=== PATIENT | female | born 1955 | race Caucasian/White ===

== ENCOUNTER 2018-05-14 18:37 | Emergency (ER) | payer OTHER ==
[~2018-05-14] VITALS: Ht 160 cm; Wt 76.2 kg
[~2018-05-14 18:37] MED LIST: ASPIR 8181 MG PO; NORCO 5-325 TA1 EACH PO; PERCOCET 5-3251 EACH PO; PRINIVIL20 M1 PO
[2018-05-14 18:42] VITALS: BP 146/83
== END 2018-05-15 05:36 | disposition home or self-care (01) ==
LOC: ER 18:37
DX: H61.21 Impacted cerumen, right ear (principal)

== ENCOUNTER 2020-09-17 09:53 | Emergency (ER) | payer OTHER ==
[~2020-09-17] VITALS: Ht 167.6 cm; Wt 72.6 kg
[2020-09-17] MEDS ORDERED: MONTELUKAST SODI4 M1 PO (10:13)
[2020-09-17 10:35] LABS: ABSOLUTE NEUTROPHILS 2.9 thou/uL (1.4-8.2); BASOPHILS 0.7 % (0.0-2.0); EOSINOPHILS 1.8 % (0.0-3.0); HEMATOCRIT 41.3 % (37.0-47.0); HEMOGLOBIN 14.2 gm/dL (12.0-15.0); LYMPHOCYTES 22.1 % (24.0-44.0); MCH 30.8 pg (26.0-34.0); MCHC 34.4 g/dL (28.0-37.0); MCV 89.4 fL (80.0-100.0); PLATELET COUNT 218 thou/uL (150-400); POLYS 63.4 % (36.0-66.0); RBC 4.61 mil/uL (4.20-5.00); RDW 13.3 % (10.5-14.5); WBC 4.6 thou/uL (4.0-11.0)
[2020-09-17 10:38] LABS: CALCIUM 8.5 mg/dL (8.5-10.1); CREATININE 0.8 mg/dL (0.6-1.0); POTASSIUM 3.9 mmol/L (3.5-5.1)
[2020-09-17 10:44] LABS: ALBUMIN 3.7 g/dL (3.4-5.0); TOTAL BILIRUBIN 0.5 mg/dL (0.2-1.0)
[2020-09-17 11:19] VITALS: BP 122/84
--- NOTE | 2020-09-19 07:36 | EKG ---
[place] [address] [facility] [place] [address] ELECTROCARDIOGRAM REPORT Name: JONATAN GUTIERREZ Room #: [facility]#: [id number] Admission: 09/17/20 Attend Phys: Discharge: 09/17/20 Date of : 55 Report #: [id number] [facility] ED Test Date: 2020-09-17 Test Time: 10:53:03 Pat Name: JONATAN GUTIERREZ Department: Room: Gender: F Manager Helpdesk: [facility] : 1955 Requested By: Simon Burton Order Number: [id number] MD: Tamir Lehman Measurements Intervals [place] Rate: 77 P: 43 MT: 167 QRS: -26 QRSD: 109 T: 6 QT: 407 QTc: 461 Interpretive Statements Sinus rhythm Probable left ventricular hypertrophy Borderline T abnormalities, inferior leads Compared to ECG 04/05/2016 20:43:31 T-wave abnormality now present Electronically Signed On 09-19-2020 7:36:45 HEAD BAKER by Tamir Lehman [email or web address] <ELECTRONICALLY SIGNED> By: Tamir Lehman MD, [facility] 09/19/20 [id number] Tamir Lehman MD, FACC /EPI
== END 2020-09-17 11:19 | disposition home or self-care (01) ==
LOC: ER 09:53
PROVIDERS: Emergency Medicine
DX: R53.83 Other fatigue (principal); I10 Essential (primary) hypertension; F17.210 Nicotine dependence, cigarettes, uncomplicated; Z79.82 Long term (current) use of aspirin; Z79.899 Other long term (current) drug therapy; Z20.822 Contact with and (suspected) exposure to COVID-19